=== PATIENT | female | born 1990 | race Caucasian/White ===

== ENCOUNTER 2016-12-22 22:14 | Emergency (ER) ==
[2016-12-22 22:31] VITALS: BP 128/81; TEMP 98.4; BMI 19.8
[2016-12-22] MEDS ORDERED: SODIUM CHLORIDE 1,000 ML IV STA (22:44)
--- NOTE | 2016-12-22 22:46 | ED.PDOC ---
General ED Provider: Dr. PATIENCE CRUM Chief Complaint: Behavioral Complaint Stated Complaint: Patient is a 26 year old female who come to the ER with an anxiety attack at home with nubness ot hands and Arms. She admits to Drinking 3 Margaritas and feel she craves for it yet she know she has to care for her children. SHe is 8 week post . she has been on celexa for a long time which she states she take faithfully and although has clonipine only take it at night since she has to take care of her children and it can make her sleepy. she has been going through alot of stress of one of her child being ill and has been going for test in [facility]. Admits to history ETOH in the past and now wants help. Time Seen by Physician: 22:45 Mode of Arrival: Walk-In Information Source: Patient Exam Limitations: No limitations Primary Care Provider: ARI WAKEFIELD Nursing and Triage Documentation Reviewed and Agree: Yes Psychological Complaint Exam - Substance Abuse/Use Complaint/Exam Patient Complains Of Substance Abuse Of: Alcohol Abuse Began: few years ago was worse got better not seems to be getting worse again. Increased Use Since: 1 month Timing: Binge use Recent Cessation: today Initial Severity: Moderate Current Severity: Moderate Character: Present: Depressed, Anxious Aggravating: Reports: Recent stress (child being sick ) Alleviating: Reports: None Possible Multi Drug Ingestion: No Last Used Alcohol: tonight Last Used Drugs: none Patient Accompanied By: Family Patient In Custody Of Police: No Social Withdrawal Present: No Social Isolation Present: No Prior Suicide Attempt: No Injury From Prior Suicide Attempt: No Patient Uncooperative For Exam: No Mood: Present: Depressed, Anxious Appearance: Present: Clean Thought Process: Present: Logical Insight: Present: Good Memory: Intact Judgement: Normal Danger To Others: No Differential Diagnoses: Alcohol Abuse, Anxiety Review of Systems - Review Of Systems Constitutional: Reports: No symptoms Eyes: Reports: No symptoms Ears, Nose, Mouth, Throat: Reports: No symptoms Respiratory: Reports: No symptoms Cardiac: Reports: No symptoms GI: Reports: No symptoms : Reports: No symptoms Musculoskeletal: Reports: No symptoms Skin: Reports: No symptoms Neurological: Reports: Anxiety, Depressed, Other (Alcohol craving. ) Endocrine: Reports: No symptoms Hematologic/Lymphatic: Reports: No symptoms All Other Systems: Reviewed and Negative Past Medical History - Past Medical History Previously Healthy: Yes Endocrine: Reports: None Cardiovascular: Reports: None Respiratory: Reports: None Hematological: Reports: None Gastrointestinal: Reports: None Genitourinary: Reports: None Neuro/Psych: Reports: None Musculoskeletal: Reports: None Cancer: Reports: None Last Menstrual Period: 3 WEEKS AGO - Surgical History General Surgical History: Reports: None - Family History Family History: Reports: Unknown - Social History Smoking Status: Current some day smoker Hx Substance Use: Yes (ALCOHOL) Alcohol Screening: Occasionally - Immunizations Tetanus Shot up to Date: Yes Physical Exam - Physical Exam Appearance: Ill-appearing, No pain distress Ill-appearing: Mild Eyes: SUNG, EOMI, Conjunctiva clear Neck: Supple Respiratory: Airway patent, Breath sounds clear, Breath sounds equal, Respirations nonlabored Cardiovascular: RRR, Pulses normal, No rub, No murmur GI/: Soft, Nontender, No masses, Bowel sounds normal, No Organomegaly Musculoskeletal: Normal strength, ROM intact, No edema, No calf tenderness Skin: Warm, Dry, Normal color Neurological: Sensation intact, Motor intact, Reflexes intact, Cranial nerves intact, Alert, Oriented Psychiatric: Anxious Re-Evaluation - Re-Evaluation Time of Re-Evaluation: 00:05 Status: Improved (Less anxious ) Critical Care Note - Critical Care Note Total Time (mins): 0 Course - Course Hematology/Chemistry: 12/22/16 22:50 12/22/16 22:50 Orders, Labs, Meds: Lab Review 12/22/16 12/22/16 22:45 22:50 WBC 3.34 L RBC 4.39 Hgb 13.3 Hct 40.4 MCV 92.0 MCH 30.3 MCHC 32.9 RDW Coeff of Antonio 13.6 Plt Count 203 Immature Gran % (Auto) 0.0 Neut % (Auto) 41.9 Lymph % (Auto) 52.4 H [place] % (Auto) 4.8 Eos % (Auto) 0.3 Baso % (Auto) 0.6 Immature Gran # (Auto) 0.0 Neut # 1.4 L Lymph # 1.8 [place] # 0.2 L Eos # 0.0 Baso # 0.0 Sodium 145 Potassium 3.7 Chloride 109 H Carbon Dioxide 24 Anion Gap 15.7 BUN 13 Creatinine 0.81 Estimated GFR (MDRD) 85.00 BUN/Creatinine Ratio 16.04 Glucose 76 Calcium 9.0 Total Bilirubin 0.32 AST 19 ALT 22 Alkaline Phosphatase 56 Total Protein 7.0 Albumin 4.2 Globulin 2.8 Albumin/Globulin Ratio 1.50 Amylase 67 Lipase 84 H TSH 0.490 Plasma/Serum Alcohol 173.5 H Orders Category Date Time Status ED IV/MEDIPORT/POWERPORT .ONCE EMERGENCY 12/22/16 22:44 Active AMYLASE Stat LAB 12/22/16 22:50 Completed CBC W/ AUTO DIFF Stat LAB 12/22/16 22:50 Completed COMPREHENSIVE METABOLIC PANEL Stat LAB 12/22/16 22:50 Completed ETOH LEVEL [BLOOD ALCOHOL] Stat LAB 12/22/16 22:45 Completed LIPASE Stat LAB 12/22/16 22:50 Completed THYROID STIMULATING HORMONE Stat LAB 12/22/16 22:50 Completed 0.9 % Sodium Chloride [Saline Flush] MEDS 12/22/16 22:44 Discontinued 1 syr IVF PRN PRN Lorazepam Inj [Ativan] MEDS 12/22/16 23:45 Discontinued 1 mg IVP ONCE STA Sodium Chloride 0.9% [Sodium Chloride] 1,000 ml MEDS 12/22/16 22:44 Discontinued IV BOLUS Medications Discontinued Medications Generic Name Dose Route Start Last Admin Trade Name Freq PRN Reason Stop Dose Admin Sodium Chloride 1,000 mls @ 1,000 mls/hr 12/22/16 22:44 12/22/16 23:39 Sodium Chloride IV 12/22/16 23:43 1,000 mls/hr BOLUS STA Administration Lorazepam 1 mg 12/22/16 23:45 12/23/16 00:12 Ativan IVP 12/22/16 23:46 1 mg ONCE STA Administration Sodium Chloride 1 syr 12/22/16 22:44 Saline Flush IVF PRN PRN To flush IV Vital Signs: Temp Pulse Resp BP Pulse Ox 12/22/16 22:18 98.4 F 102 H 18 128/81 98 Departure - Departure Time of Disposition: 00:10 Disposition: HOME SELF-CARE Discharge Problem: Anxiety, Alcohol intoxication Instructions: Depression (ED), Panic Attack (ED), Alcohol Intoxication (ED), Abuse of Alcohol (ED), At-Risk Alcohol Use (ED) Condition: Fair Pt referred to PMD for follow-up: Yes Additional Instructions: Talk to your Doctor about increasing your Celexa to 30 0r 40 mg or Trying something else See counselling for Alcohol use. Continue Clonazepam as needed. Follow up with PC in 3 days. Allergies/Adverse Reactions: Allergies No Known Allergies Allergy (Verified 12/22/16 22:31) Home Medications: Ambulatory Orders Ondansetron HCl [Zofran] 4 mg PO DAILY PRN 02/27/16 Promethazine HCl [Phenergan Tab] 25 mg PO DAILY PRN 02/27/16 Citalopram Hydrobromide [Celexa] 20 mg PO DAILY 12/22/16 Clonazepam [Klonopin] 0.5 mg PO BEDTIME PRN 12/22/16 Disposition Discussed With: Patient, Family Discharge Problem: Alcohol intoxication Qualifiers: Complication of substance-induced condition: uncomplicated Qualifier Code: ( F10.120) Alcohol abuse with intoxication, uncomplicated
[2016-12-22 22:56] LABS: BASOPHILS % (AUTO) 0.6 % (0.0-3.0); EOSINOPHILS % (AUTO) 0.3 % (0.0-7.0); HEMATOCRIT 40.4 % (37.0-47.0); HEMOGLOBIN 13.3 g/dl (12.0-16.0); LYMPHOCYTES # (AUTO) 1.8 K/uL (0.60-3.4); LYMPHOCYTES % (AUTO) 52.4 (10.0-50.0); MEAN CORPUSCULAR HEMOGLOBIN 30.3 pg (27.0-31.0); MEAN CORPUSCULAR HGB CONC 32.9 (31.8-35.4); MONOCYTES # (AUTO) 0.2 K/uL (0.4-2.0); MONOCYTES % (AUTO) 4.8 (0-10); NEUTROPHILS # (AUTO) 1.4 K/ul (2.0-6.9); NEUTROPHILS % (AUTO) 41.9; PLATELET COUNT 203 10^3/uL (140-440); RED BLOOD COUNT 4.39 10^6/ul (4.20-5.40); WHITE BLOOD COUNT 3.34 K/ul (4.6-10.2)
[2016-12-22 23:35] LABS: ALBUMIN 4.2 g/dL (3.4-5.0); ALBUMIN/GLOBULIN RATIO 1.5; ANION GAP 15.7; BILIRUBIN,TOTAL 0.32 mg/dL (0.00-1.20); BUN/CREATININE RATIO 16.04; CREATININE 0.81 mg/dL (0.60-1.30); POTASSIUM 3.7 mmol/L (3.5-5.10)
[2016-12-22] MEDS ORDERED: ATIVAN IVP STA (23:45)
== END 2016-12-23 00:29 | disposition home or self-care (01) ==
LOC: ED 22:14
DX: F41.9 Anxiety disorder, unspecified (principal); F10.120 Alcohol abuse with intoxication, uncomplicated; F17.210 Nicotine dependence, cigarettes, uncomplicated; Z79.899 Other long term (current) drug therapy
CPT/HCPCS: 36415; 80053; 80307; 82150; 83690; 84443; 85025; 96360; 96361; 96374; 99284

== ENCOUNTER 2017-02-23 23:08 | Emergency (ER) ==
[2017-02-23 23:23] VITALS: BP 113/77; TEMP 97; BMI 20.3
[2017-02-23] MEDS ORDERED: NORFLEX IM STA (23:23)
[2017-02-23] MEDS ORDERED: TORADOL IM STA (23:23)
--- NOTE | 2017-02-23 23:26 | ED.PDOC ---
General ED Provider: Dr. BURAK PRATT Chief Complaint: Neck Pain Non-Injury Stated Complaint: Neck pain for 4-5 days, hurts to move and bend. Time Seen by Physician: 23:24 Mode of Arrival: Walk-In Information Source: Patient Primary Care Provider: ARI WAKEFIELD Nursing and Triage Documentation Reviewed and Agree: Yes Musculoskeletal Complaint Exam - Neck Pain Complaint/Exam Mechanism of Injury: Reports: No known trauma Symptoms Are: Still present Timing: Constant Episodes Lasting: Days Initial Severity: Moderate Current Severity: Moderate Location: Reports: Discrete Character: Reports: Aching, Throbbing Aggravating: Reports: Movement Alleviating: Reports: None Associated Signs and Symptoms: Denies: Swelling, Redness, Bruising, Fever, Nuchal rigidity, Weakness, Headache, Paresthesia Related History: Reports: Similar episode Meningitis Risk Factors: Reports: None Cervical Spine Injury Risk Factors: Reports: None Related Surgical History: Reports: None Carotid Bruit Present: No Pain on Passive Flexion: No Positive Kernig's Sign: No ROM Limited In: Present: Flexion, Extension Tenderness: Present: Paraspinal Focal Weakness: Present: None Focal Sensory Loss: Reports: None Differential Diagnoses: Arthritis, Sprain Review of Systems - Review Of Systems Constitutional: Reports: No symptoms Eyes: Reports: No symptoms Ears, Nose, Mouth, Throat: Reports: No symptoms Respiratory: Reports: No symptoms Cardiac: Reports: No symptoms GI: Reports: No symptoms : Reports: No symptoms Musculoskeletal: Reports: No symptoms Skin: Reports: No symptoms Neurological: Reports: No symptoms Endocrine: Reports: No symptoms Hematologic/Lymphatic: Reports: No symptoms All Other Systems: Reviewed and Negative Past Medical History - Past Medical History Previously Healthy: Yes Endocrine: Reports: None Cardiovascular: Reports: None Respiratory: Reports: None Hematological: Reports: None Gastrointestinal: Reports: None Genitourinary: Reports: None Neuro/Psych: Reports: None Musculoskeletal: Reports: None Cancer: Reports: None Last Menstrual Period: 1 month ago - Surgical History General Surgical History: Reports: None - Family History Family History: Reports: None - Social History Smoking Status: Current some day smoker Hx Substance Use: No Alcohol Screening: None - Immunizations Tetanus Shot up to Date: Yes Physical Exam - Physical Exam Appearance: Well-appearing Pain Distress: Moderate Musculoskeletal: Limited ROM Critical Care Note - Critical Care Note Total Time (mins): 0 Course - Course Orders, Labs, Meds: Orders Category Date Time Status SERUM Stat LAB 02/23/17 Ordered Ketorolac Tromethamine [Toradol] MEDS 02/23/17 23:23 Stat 60 mg IM ONCE STA Orphenadrine Citrate [Norflex] MEDS 02/23/17 23:23 Stat 60 mg IM ONCE STA CT CERVICAL SPINE W/O CONTRAST Stat RADS 02/23/17 23:23 Ordered Medications Discontinued Medications Generic Name Dose Route Start Last Admin Trade Name Griselda PRN Reason Stop Dose Admin Ketorolac Tromethamine 60 mg 02/23/17 23:23 Toradol IM 02/23/17 23:24 ONCE STA Orphenadrine Citrate 60 mg 02/23/17 23:23 Norflex IM 02/23/17 23:24 ONCE STA Vital Signs: Temp Pulse Resp BP Pulse Ox 02/23/17 23:09 97 F L 88 18 113/77 98 Departure - Departure Time of Disposition: 00:10 Disposition: HOME SELF-CARE Discharge Problem: Acute neck sprain Qualifiers: Encounter type: initial encounter Qualifier Code: (S13.9XXA) Sprain of joints and ligaments of unspecified parts of neck, initial encounter Instructions: Cervical Strain (ED) Condition: Good Pt referred to PMD for follow-up: Yes Prescriptions: Cyclobenzaprine HCl [Flexeril] 5 mg PO BID #14 tablet Hydrocodone/Acetaminophen [[place] 5-325 Tablet] 1 tab PO TID PRN #12 tablet PRN Reason: PAIN Allergies/Adverse Reactions: Allergies No Known Allergies Allergy (Verified 02/23/17 23:23) Home Medications: Ambulatory Orders Cyclobenzaprine HCl [Flexeril] 5 mg PO BID #14 tablet 02/23/17 Hydrocodone/Acetaminophen [[place] 5-325 Tablet] 1 tab PO TID PRN #12 tablet 02/23 Disposition Discussed With: Patient
[2017-02-23 23:59] LABS: SERUM PREGNANCY INTERNAL QC INTERNAL QC VALID
== END 2017-02-24 00:30 | disposition home or self-care (01) ==
LOC: ED 23:08
DX: S13.9XXA Sprain of joints and ligaments of unspecified parts of neck, initial encounter (principal); F17.210 Nicotine dependence, cigarettes, uncomplicated
CPT/HCPCS: 36415; 84703; 96372; 99282

== ENCOUNTER 2018-06-15 20:22 | Emergency (ER) ==
[2018-06-15 20:36] VITALS: BP 112/69; TEMP 97.2; BMI 18.8
[2018-06-15] MEDS ORDERED: ZOFRAN 4 MG/2 ML IVP STA (20:36)
[2018-06-15] MEDS ORDERED: TORADOL IVP STA (20:37)
[2018-06-15] MEDS ORDERED: LACTATED RINGERS 1,000 ML IV STA (20:58)
--- NOTE | 2018-06-15 21:01 | ED.PDOC ---
General ED Provider: Dr. PATIENCE CRUM Chief Complaint: Headache Stated Complaint: Patient states that she has had severe headaches for weeks and was to follow up with PCP for possible CT head after visit last week. She has been losing a lot of weight and her hair has been falling off. She States that she has been nauseated with poor appetite. She has unintentionally lost about 20 lbs in the past few months. Time Seen by Physician: 21:03 Mode of Arrival: Walk-In Information Source: Patient Exam Limitations: No limitations Primary Care Provider: ARI WAKEFIELD Seen Within Last 72 Hours for Same Complaint By: ED Nursing and Triage Documentation Reviewed and Agree: Yes Does patient meet sepsis criteria?: No System Inflammatory Response Syndrome: Not Applicable Sepsis Protocol: For patient's 13 years and over: Temp is 96.8 and below OR 101 and greater Pulse >90 BPM Resp >20/minute Acutely Altered Mental Status Are patient's symptoms suggestive of a new infection, such as: -Pneumonia -Skin, Soft Tissue -Endocarditis -UTI -Bone, Joint Infection -Implantable Device -Acute Abdominal Infection -Wound Infection -Meningitis -Blood Stream Catheter Infection -Unknown Neurological Complaint Exam - Headache Complaint/Exam Onset: Gradual Duration: 2 months Symptoms Are: Still present Timing: Constant Worst Headache Ever: Yes Initial Severity: Moderate Current Severity: Severe Location: Right, Left, Frontal, Temporal Character: Reports: Throbbing Aggravating: Reports: Bright lights Associated Signs and Symptoms: Reports: Nausea SAH Risk Factors: Denies: Smoking, Hypertension Meningitis Risk Factors: Reports: None SDH Risk Factors: Reports: None Temporal Arteritis Risk Factors: Reports: None Normal Head CT Within Last 12 Months: No Papilledema Present: No Temporal Artery Tenderness: Present: None Sinus Tenderness: Present: None TMJ Tenderness: Present: None Glascow Coma Scale (see protocol): 15 Meningeal Signs Positive: No Pain on Passive Flexion-Positive Kernig's: No ROM Limited In: No Limitiations Focal Weakness: Present: None Focal Sensory Loss: Present: None Gait: Normal Nystagmus Present: No Gag Reflex Present: No [id number]: Normal Findings Romberg Test Positive: No Babinski Sign: Negative Right, Negative Left Head Picture: 1 - headace Differential Diagnoses: Sinus Headache, Tension Headache, Viral Syndrome Review of Systems - Review Of Systems Constitutional: Reports: Loss of appetite, Other (weight loss ) Eyes: Reports: No symptoms Ears, Nose, Mouth, Throat: Reports: No symptoms Respiratory: Reports: No symptoms Cardiac: Reports: No symptoms GI: Reports: Nausea, Poor appetite : Reports: No symptoms Musculoskeletal: Reports: No symptoms Skin: Reports: No symptoms Neurological: Reports: Anxiety, Depressed, Headache Endocrine: Reports: No symptoms Hematologic/Lymphatic: Reports: No symptoms All Other Systems: Reviewed and Negative Past Medical History - Past Medical History Previously Healthy: Yes Endocrine: Reports: None Cardiovascular: Reports: None Respiratory: Reports: None Hematological: Reports: Anemia Gastrointestinal: Reports: None Genitourinary: Reports: None Neuro/Psych: Reports: None, Anxiety, Depression Musculoskeletal: Reports: None Cancer: Reports: None Last Menstrual Period: 2days Other Pertinent Past Medical History: ADD - Surgical History General Surgical History: Reports: Tubal ligation, Other (D and C ) - Family History Family History: Reports: None - Social History Smoking Status: Former smoker Hx Substance Use: No Alcohol Screening: Occasionally - Immunizations Tetanus Shot up to Date: Yes Physical Exam - Physical Exam Appearance: Ill-appearing, Thin Ill-appearing: Moderate Pain Distress: Severe Eyes: SUNG, EOMI, Conjunctiva clear Neck: Supple Respiratory: Airway patent, Breath sounds clear, Breath sounds equal, Respirations nonlabored Cardiovascular: RRR GI/: Soft, Nontender, No masses, Bowel sounds normal, No Organomegaly Musculoskeletal: Normal strength, ROM intact, No edema, No calf tenderness Skin: Warm, Dry, Normal color Neurological: Sensation intact, Motor intact, Reflexes intact, Cranial nerves intact, Alert, Oriented Psychiatric: Anxious Interpretation - Radiology Interpretation Radiology Interpretation By: Radiologist Radiology Results: Negative Exam Interpreted: CT Scan (head ) Re-Evaluation - Re-Evaluation Time of Re-Evaluation: 23:10 Status: Improved Pain Level: much improved Critical Care Note - Critical Care Note Total Time (mins): 0 Course - Course Hematology/Chemistry: 06/15/18 20:45 06/15/18 20:45 Orders, Labs, Meds: Lab Review 06/15/18 06/15/18 06/15/18 20:45 20:45 20:45 WBC 3.74 L RBC 3.57 L Hgb 9.7 L Hct 30.9 L MCV 86.6 MCH 27.2 MCHC 31.4 L RDW Coeff of Antonio 15.0 H Plt Count 161 Immature Gran % (Auto) 0.0 Neut % (Auto) 36.1 Lymph % (Auto) 54.5 H [place] % (Auto) 7.8 Eos % (Auto) 0.8 Baso % (Auto) 0.8 Immature Gran # (Auto) 0.0 Neut # (Auto) 1.4 L Lymph # (Auto) 2.0 [place] # (Auto) 0.3 L Eos # (Auto) 0.0 Baso # (Auto) 0.0 Sodium 139 Potassium 4.1 Chloride 108 H Carbon Dioxide 26 Anion Gap 9.1 BUN 19 H Creatinine 0.77 Estimated GFR (MDRD) 89.00 BUN/Creatinine Ratio 24.67 Glucose 94 Calcium 8.3 Total Bilirubin 0.3 AST 17 ALT 19 Alkaline Phosphatase 28 L Total Protein 5.9 L Albumin 3.5 Globulin 2.4 Albumin/Globulin Ratio 1.46 Vitamin B12 TSH Serum , Qual Negative 06/15/18 06/15/18 20:45 20:50 WBC RBC Hgb Hct MCV MCH MCHC RDW Coeff of Antonio Plt Count Immature Gran % (Auto) Neut % (Auto) Lymph % (Auto) [place] % (Auto) Eos % (Auto) Baso % (Auto) Immature Gran # (Auto) Neut # (Auto) Lymph # (Auto) [place] # (Auto) Eos # (Auto) Baso # (Auto) Sodium Potassium Chloride Carbon Dioxide Anion Gap BUN Creatinine Estimated GFR (MDRD) BUN/Creatinine Ratio Glucose Calcium Total Bilirubin AST ALT Alkaline Phosphatase Total Protein Albumin Globulin Albumin/Globulin Ratio Vitamin B12 353 TSH 0.538 Serum , Qual Orders Category Date Time Status ED IV/MEDIPORT/POWERPORT .ONCE EMERGENCY 06/15/18 20:36 Active CBC W/ AUTO DIFF Stat LAB 06/15/18 20:45 Completed COMPREHENSIVE METABOLIC PANEL Stat LAB 06/15/18 20:45 Completed SERUM Stat LAB 06/15/18 20:45 Completed TSH [THYROID STIMULATING HORMONE] Stat LAB 06/15/18 20:45 Completed VITAMIN B12 Stat LAB 06/15/18 20:50 Completed 0.9 % Sodium Chloride [Saline Flush] MEDS 06/15/18 20:37 Discontinued 1 syr IVF PRN PRN Ketorolac Tromethamine [Toradol] MEDS 06/15/18 20:37 Discontinued 30 mg IVP ONCE STA Ondansetron HCl/Pf [Zofran 4 mg/2 ml] MEDS 06/15/18 20:36 Discontinued 4 mg IVP ONCE STA Ringers Lactated Solution [Lactated Ringers] 1,000 ml MEDS 06/15/18 20:58 Discontinued IV BOLUS Sumatriptan Succinate [Imitrex] MEDS 06/15/18 22:42 Discontinued [address] HEAD W/O CONTRAST Stat RADS 06/15/18 20:36 Completed Medications Discontinued Medications Generic Name Dose Route Start Last Admin Trade Name Freq PRN Reason Stop Dose Admin Lactated Ringer's 1,000 mls @ 1,000 mls/hr 06/15/18 20:58 06/15/18 21:09 Lactated Ringers IV 06/15/18 21:57 1,000 mls/hr BOLUS STA Administration Ketorolac Tromethamine 30 mg 06/15/18 20:37 06/15/18 21:11 Toradol IVP 06/15/18 20:38 30 mg ONCE STA Administration Ondansetron HCl 4 mg 06/15/18 20:36 06/15/18 21:10 Zofran 4 Mg/2 Ml IVP 06/15/18 20:37 4 mg ONCE STA Administration Sodium Chloride 1 syr 06/15/18 20:37 06/15/18 21:08 Saline Flush IVF 1 syr PRN PRN Administration To flush IV Sumatriptan Succinate 6 mg 06/15/18 22:42 06/15/18 23:00 Imitrex SUBCUT 06/15/18 22:43 6 mg ONCE STA Administration Vital Signs: Temp Pulse Resp BP Pulse Ox 06/15/18 20:23 97.2 F L 75 16 112/69 97 Departure - Departure Time of Disposition: 23:35 Disposition: HOME SELF-CARE Discharge Problem: Headache Instructions: Migraine Headache (ED) Condition: Fair Pt referred to PMD for follow-up: Yes IPMP verified?: No Additional Instructions: Follow up with PCP in 3 days Take Medications as prescribed. Prescriptions: Butalb/Acetaminophen/Caffeine [Fioricet] 1 each PO TID PRN #25 tablet PRN Reason: Headache Ondansetron HCl [Zofran Tab] 4 mg PO Q8H PRN #14 tablet PRN Reason: Nausea / Vomiting Allergies/Adverse Reactions: Allergies No Known Allergies Allergy (Verified 06/15/18 23:01) Home Medications: Ambulatory Orders Butalb/Acetaminophen/Caffeine [Fioricet] 1 each PO TID PRN #25 tablet 06/15/18 Clonazepam [Klonopin] 0.5 mg PO DAILY PRN 06/15/18 Ondansetron HCl [Zofran Tab] 4 mg PO Q8H PRN #14 tablet 06/15/18 Disposition Discussed With: Patient, Family
--- NOTE | 2018-06-15 21:44 | CT ---
EXAM: CT head without contrast. HISTORY: Headache. PROCEDURE: Contiguous axial CT images of the head without contrast with coronal and sagittal reforma ts. FINDINGS: There are earrings with associated artifact which limits the exam. The ventricles and basa l cisterns are normal in size and configuration. No evidence of mass or midline shift. No intracran ial hemorrhage or evidence of large vessel infarct. No extra-axial fluid collection. The paranasal sinuses and mastoid air cells are well-aerated and normal in appearance. Impression: Negative CT of the head.
[2018-06-15] MEDS ORDERED: IMITREX SUBCUT STA (22:42)
== END 2018-06-15 23:40 | disposition home or self-care (01) ==
LOC: ED 20:22
DX: R51 Headache (principal); R63.4 Abnormal weight loss
CPT/HCPCS: 36415; 80053; 82607; 84443; 84703; 85025; 96361; 96372; 96374; 96375; 99283

== ENCOUNTER 2018-07-30 15:51 | Outpatient (CLI) | END 2018-07-30 15:52 | disposition home or self-care (01) | LOC: FCC-LAB 15:51 | PROVIDERS: ATTEND Family Medicine | DX: D64.9 Anemia, unspecified (principal) | CPT/HCPCS: 36415 ==

== ENCOUNTER 2018-12-20 12:10 | Outpatient (CLI) | payer OTHER | END 2018-12-20 12:11 | disposition home or self-care (01) | LOC: RHC-LAB 12:10 → FCC-LAB 12:11 | PROVIDERS: ATTEND Family Medicine | DX: R68.89 Other general symptoms and signs (principal) | CPT/HCPCS: 87502 ==

== ENCOUNTER 2019-02-28 13:52 | Outpatient (CLI) | END 2019-02-28 13:53 | disposition home or self-care (01) | LOC: RHC-LAB 13:52 → FCC-LAB 13:53 | PROVIDERS: ATTEND Family Medicine | DX: R51 Headache (principal); D64.9 Anemia, unspecified; R63.6 Underweight; Z13.220 Encounter for screening for lipoid disorders | CPT/HCPCS: 36415; 80053; 80061; 82728; 83540; 83550; 85025 ==